=== PATIENT | female | born 1965 | race African-American/Black ===

== ENCOUNTER 2016-09-26 13:47 | Emergency (ER) | payer MEDICARE, MEDICAID ==
[2016-09-26 13:52] VITALS: BP 138/88
[2016-09-26] MEDS ORDERED: traMADol TAB* 50 MG PO ONE (14:35)
--- NOTE | 2016-09-26 15:12 | RAD ---
HISTORY: Neck pain COMPARISONS: None TECHNIQUE: Multiple contiguous axial CT scans were obtained of the cervical spine without intravenous contrast, with coronal and sagittal multiplanar reformations. FINDINGS: BRAIN: The visualized brain is unremarkable CENTRAL CANAL: Evaluation of the central canal is limited on CT technique; however, there is no obvious canalicular mass or epidural hemorrhage. ALIGNMENT: There is straightening of the cervical lordosis. VERTEBRAL BODIES: The odontoid process is intact. The atlantoaxial intervals are symmetric. The vertebral bodies are normal in attenuation, without fracture. There is multilevel anterolateral marginal osteophyte formation. JOINTS: There is mild uncovertebral and facet osteoarthritic change MUSCULATURE: Unremarkable INTERVERTEBRAL DISCS: There is diffuse loss of intervertebral disc height. AXIAL IMAGES: C2-C3: There is no osseous neural foraminal narrowing or central canal stenosis. C3-C4: There is no osseous neural foraminal narrowing or central canal stenosis. C4-C5: There is no osseous neural foraminal narrowing or central canal stenosis. C5-C6: There is no osseous neural foraminal narrowing or central canal stenosis. C6-C7: There is no osseous neural foraminal narrowing or central canal stenosis. C7-T1: There is no osseous neural foraminal narrowing or central canal stenosis. SOFT TISSUES: The visualized soft tissues of the neck are unremarkable. The prevertebral fat stripe is preserved. OTHER: None. IMPRESSION: 1. STRAIGHTENING OF THE CERVICAL LORDOSIS. 2. DEGENERATIVE DISC DISEASE AND OSTEOARTHRITIS. 3. NO SIGNIFICANT OSSEOUS NEURAL FORAMINAL NARROWING OR CENTRAL CANAL STENOSIS.
--- NOTE | 2016-10-06 03:21 | ED ---
Back Pain - HPI Summary HPI Summary: 51F presents with worsening of chronic neck pain. She denies any loss of bowel or bladder or saddle anaesthesia. She is requesting an MRI which explained that needs to set up through primary. she takes lyrica for pain. She used to be prescribed tramadol but is out. She states the pain radiates down her back. She denies any fever or IV drug use. she denies any injury. - History of Current Complaint Chief Complaint: EDBackInjuryPain Stated Complaint: NECK AND BACK PAIN Time Seen by Provider: 09/26/16 14:06 Pain Intensity: 10 - Allergies/Home Medications Allergies/Adverse Reactions: Allergies Allergy/AdvReac Type Severity Reaction Status Date / Time Vitamin E Allergy Severe Rash Verified 07/25/15 11:40 PMH/Surg Hx/FS Hx/Imm Hx Endocrine/Hematology History: Denies: Hx Diabetes Cardiovascular History: Reports: Hx Hypertension Denies: Hx Congestive Heart Failure, Hx Pacemaker/ICD Respiratory History: Reports: Other Respiratory Problems/Disorders - LLL lung mass, long-time smoker GI History: Reports: Hx Gastroesophageal Reflux Disease Musculoskeletal History: Reports: Hx Back Problems Sensory History: Reports: Hx Hearing Problem Denies: Hx Hearing Aid Neurological History: Reports: Other Neuro Impairments/Disorders - vertigo, PAIN CLINIC PATIENT Psychiatric History: Reports: Hx Anxiety, Hx Depression, Hx Inpatient Treatment , Hx Community Mental Health Tx Denies: Hx Eating Disorder, Hx Panic Disorder, Hx Schizophrenia - schizoaffective disorder, Hx of Violent Episodes Against Others Comment Only: Other Psychiatric Issues/Disorders - schizoaffective disorder - Cancer History Cancer Type, Location and Year: LLL lung mass 11/15 - Surgical History Surgery Procedure, Year, and Place: HYSTERECTOMY, APPENDECTOMY, CHOLECYSTECTOMY , EAR SURGERY-PT GETTING INFO,BUNIONECTOMY, X2, TUBAL LIGATION, LEFT WRIST CYST REMOVAL Infectious Disease History: No Infectious Disease History: Reports: Hx Shingles Denies: Traveled Outside the [place] in Last 30 Days - Family History Known Family History: Positive: Hypertension - Social History Alcohol Use: None Alcohol Amount: beer Substance Use Type: Reports: None Substance Use Comment - Amount & Last Used: Lyrica RX by Dr. Gilbert Smoking Status (MU): Light Every Day Tobacco Smoker Type: Cigarettes Amount Used/How Often: 5 cigarettes day Length of Time of Smoking/Using Tobacco: began at age 15 Have You Smoked in the Last Year: No Review of Systems Negative: Fever Negative: Chest Pain Negative: Shortness Of Breath Positive: Myalgia - neck pain All Other Systems Reviewed And Are Negative: Yes Physical Exam Triage Information Reviewed: Yes Vital Signs On Initial Exam: Initial Vitals Temp Pulse Resp BP Pulse Ox 98.1 F 78 14 138/88 100 09/26/16 13:49 09/26/16 13:49 09/26/16 13:49 09/26/16 13:49 09/26/16 13:49 Vital Signs Reviewed: Yes Appearance: Positive: Well-Appearing Skin: Positive: Warm, Dry Head/Face: Positive: Normal Head/Face Inspection Eyes: Positive: Normal, Conjunctiva Clear Respiratory/Lung Sounds: Positive: Clear to Auscultation, Breath Sounds Present Cardiovascular: Positive: Normal, RRR Musculoskeletal: Positive: Strength/ROM Intact - shoulder, Limited @ - neck due to pain, Other - good pulses, capillary refill<2 secs, tender across neck Neurological: Positive: Reflexes Intact - biceps Diagnostics - Vital Signs Vital Signs Temp Pulse Resp BP Pulse Ox 09/26/16 13:49 98.1 F 78 14 138/88 100 - Laboratory Lab Statement: Any lab studies that have been ordered have been reviewed, and results considered in the medical decision making process. Back Pain Course/Dx - Course Course Of Treatment: 51F presents with worsening of chronic neck pain. She denies any loss of bowel or bladder or saddle anaesthesia. She is requesting an MRI which explained that needs to set up through primary. she takes lyrica for pain. She used to be prescribed tramadol but is out. She states the pain radiates down her back. She denies any fever or IV drug use. she denies any injury. on exam tender cervical back, neurovscular intact. did CT and told to follow up with primary. patient left without discharge paperwork. patient understands and agrees with plan. - Diagnoses Differential Diagnosis/HQI/PQRI: Positive: Herniated Disc, Strain, Sprain Provider Diagnoses: Neck pain Discharge - Discharge Plan Condition: Stable Disposition: HOME Referrals: Tonny Gilbert MD [Primary Care Provider] -
== END 2016-09-26 16:26 ==
LOC: ED 13:47
DX: M54.2 Cervicalgia (principal); F17.210 Nicotine dependence, cigarettes, uncomplicated; M54.9 Dorsalgia, unspecified; M51.34 Other intervertebral disc degeneration, thoracic region; Z86.79 Personal history of other diseases of the circulatory system
CPT/HCPCS: 72125; 99282; A9270-GY

== ENCOUNTER 2016-11-18 12:08 | Emergency (ER) | payer MEDICARE, MEDICAID ==
--- NOTE | 2016-11-18 14:58 | RAD ---
Indication: Bilateral leg pain CT of the lumbar spine was obtained in the axial plane. Sagittal and coronal reconstructed images were obtained. The sacrum where visualized shows no fracture. Sacroiliac joints are unremarkable. At L5-S1 there is degenerative disc disease noted. Broad-based protrusion is noted. No central or foraminal stenosis is noted. At L4-L5 there is degenerative disc disease noted. Broad-based disc protrusion flattens the thecal sac. There may be mild central stenosis present. There may be posterior lateral disc component at L4-L5 resulting in mild right foraminal stenosis. At L3-L4 there is no focal protrusion. No central or foraminal stenosis is noted. At L2-L3 and L1-L2 the disc space appears normal. IMPRESSION: No FRACTURE OF THE LUMBAR SPINE IS NOTED. DEGENERATIVE DISC DISEASE IS NOTED AT L5-S1 WITH BROAD-BASED PROTRUSION. AT L4-L5 BROAD-BASED PROTRUSION ASYMMETRIC TOWARDS THE RIGHT IS NOTED FLATTENING THE THECAL SAC AND MAY NARROW THE RIGHT INTERVERTEBRAL FORAMEN. AT L3-L4, L2-L3 AND L1-L2 NO FOCAL PROTRUSION IS NOTED.
[2016-11-18] MEDS ORDERED: Dexamethasone IV* 4 MG/ML 5 ML VIAL (20 MG) IVPB ONE (16:50)
[2016-11-18] MEDS ORDERED: Ketorolac INJ* 30 MG/ML 1 ML VIAL IV PUSH ONE (16:50)
[2016-11-18] MEDS ORDERED: Lidocaine PATCH 5%* 1 PATCH TRANSDERM ONE (16:51)
--- NOTE | 2016-11-18 18:38 | ED ---
Back Pain - HPI Summary HPI Summary: Pt here w/ acute on chronic LBP w/ LE pain w/ walking. She has been dealing with her back pain which she also has in her cervical spine and thoracic spine - has been seen by neurosurg for these and no surgery advised at this time per pt. She is concerned about legs as she's having trouble walking. Denies pain while sitting, lying, sleeping -just w/ standing/walking. Has not tried anything for pain as she's not sure what to take. No change in bowel/bladder habits and denies numbness, tingling in LE's. Does report feeling like her legs are unstable today w/ trying to walk. - History of Current Complaint Chief Complaint: EDExtremityLower Stated Complaint: LEG PAIN Time Seen by Provider: 11/18/16 13:13 Hx Obtained From: Patient Pain Intensity: 10 - Allergies/Home Medications Allergies/Adverse Reactions: Allergies Allergy/AdvReac Type Severity Reaction Status Date / Time Vitamin E Allergy Severe Rash Verified 07/25/15 11:40 PMH/Surg Hx/FS Hx/Imm Hx Previously Healthy: Yes Endocrine/Hematology History: Denies: Hx Anticoagulant Therapy, Hx Blood Disorders, Hx Diabetes, Autoimmune Disease Cardiovascular History: Reports: Hx Hypertension Denies: Hx Congestive Heart Failure, Hx Pacemaker/ICD Respiratory History: Reports: Other Respiratory Problems/Disorders - LLL lung mass, long-time smoker GI History: Reports: Hx Gastroesophageal Reflux Disease Musculoskeletal History: Reports: Hx Back Problems Sensory History: Reports: Hx Hearing Problem Denies: Hx Hearing Aid Neurological History: Reports: Other Neuro Impairments/Disorders - vertigo, PAIN CLINIC PATIENT Psychiatric History: Reports: Hx Anxiety, Hx Depression, Hx Inpatient Treatment , Hx Community Mental Health Tx Denies: Hx Eating Disorder, Hx Panic Disorder, Hx Schizophrenia - schizoaffective disorder, Hx of Violent Episodes Against Others Comment Only: Other Psychiatric Issues/Disorders - schizoaffective disorder - Cancer History Cancer Type, Location and Year: LLL lung mass 11/15 - Surgical History Surgery Procedure, Year, and Place: HYSTERECTOMY, APPENDECTOMY, CHOLECYSTECTOMY , EAR SURGERY-PT GETTING INFO,BUNIONECTOMY, X2, TUBAL LIGATION, LEFT WRIST CYST REMOVAL Infectious Disease History: Reports: Hx Shingles Denies: Traveled Outside the [place] in Last 30 Days - Family History Known Family History: Positive: Hypertension - Social History Alcohol Use: None Alcohol Amount: beer Hx Substance Use: No Substance Use Type: Reports: None Substance Use Comment - Amount & Last Used: Lyrica RX by Dr. Vladimir Zamora Tobacco Use: Yes Smoking Status (MU): Current Every Day Smoker Type: Cigarettes Amount Used/How Often: 5 cigarettes day Length of Time of Smoking/Using Tobacco: began at age 15 Have You Smoked in the Last Year: No Review of Systems Constitutional: Negative Negative: Fever, Chills Cardiovascular: Negative Negative: Chest Pain Respiratory: Negative Negative: Shortness Of Breath Gastrointestinal: Negative Negative: Abdominal Pain, Vomiting, Diarrhea, Nausea Positive: no symptoms reported. Negative: incontinence Musculoskeletal: Other - see HPI Neurological: Other - see HPI Psychological: Normal - concerned about issues today but calm and cooperative All Other Systems Reviewed And Are Negative: Yes Physical Exam Triage Information Reviewed: Yes Vital Signs On Initial Exam: Initial Vitals Temp Pulse Resp BP Pulse Ox 98.2 F 68 20 134/60 98 11/18/16 12:44 11/18/16 12:44 11/18/16 12:44 11/18/16 12:44 11/18/16 12:44 Vital Signs Reviewed: Yes Appearance: Positive: No Pain Distress - pt sleeping in recliner chair upon entrance to room - woke easily, Obese Skin: Positive: Warm, Dry ENT: Positive: Hearing grossly normal, Pharynx normal - mucosa moist Respiratory/Lung Sounds: Positive: Breath Sounds Present Cardiovascular: Positive: Pulses are Symmetrical in both Upper and Lower Extremities Abdomen Description: Positive: Nontender, Soft Musculoskeletal: Positive: Strength/ROM Intact - LE's w/ 5/5 strength, equal B/L ; sensation intact and equal B/L, Pain @ - lumbar spinous pp and paraspinal mm are TTP Neurological: Positive: Normal, Sensory/Motor Intact, Alert, Oriented to Person Place, Time, CN Intact II-III Psychiatric: Positive: Normal Diagnostics - Vital Signs Vital Signs Temp Pulse Resp BP Pulse Ox 11/18/16 17:59 58 17 113/65 100 11/18/16 12:44 98.2 F 68 20 134/60 98 - Laboratory Lab Statement: Any lab studies that have been ordered have been reviewed, and results considered in the medical decision making process. Back Pain Course/Dx - Diagnoses Provider Diagnoses: DDD (degenerative disc disease), lumbosacral, Lumbar disc herniation with radiculopathy Discharge - Discharge Plan Condition: Stable Disposition: HOME Prescriptions: Lidocaine PATCH 5%* [Lidoderm 5% Patch*] 1 patch TRANSDERM DAILY #7 patch predniSONE TAB* [Deltasone TAB*] 20 mg PO Q8HR #12 tab Patient Education Materials: Degenerative Disc Disease (ED), Lumbar Disc Herniation (ED) Referrals: Rick Shepard MD [Medical Doctor] - Tonny Gilbert MD [Primary Care Provider] - Additional Instructions: Complete steroids and apply pain patch for pain relief You may continue to take your home pain medications as well Use walker for assistance with ambulation Follow-up with PCP for MRI. You may be a candidate for neurosurgical consult - contact included if necessary *If you develop incontinence of bowels/bladder, leg weakness or numbness, return to ED
[2016-11-18] MEDS ORDERED: Morphine INJ* 4 MG/ML 1 ML CARPUJECT IV ONE (19:58)
[2016-11-18] MEDS ORDERED: Lidocaine Patch REMOVE* 1 NOTE MISC SCH (21:00)
[2016-11-18] MEDS ORDERED: HYDROcodone/ACETAMIN 5-325 MG* 1 TAB PO ONE (21:25)
[2016-11-18 21:52] VITALS: BP 131/72
== END 2016-11-18 21:49 | disposition home or self-care (01) ==
LOC: ED 12:08
DX: M51.37 Other intervertebral disc degeneration, lumbosacral region (principal); M51.27 Other intervertebral disc displacement, lumbosacral region; M54.16 Radiculopathy, lumbar region; F17.210 Nicotine dependence, cigarettes, uncomplicated; I10 Essential (primary) hypertension; R91.8 Other nonspecific abnormal finding of lung field
CPT/HCPCS: 72131; 96360; 96374; 96375; 99282; A9270-GY; J1100; J1885; J2270

== ENCOUNTER 2017-01-30 06:03 | Observation (INO) | payer MEDICARE, MEDICAID ==
[~2017-01-30 06:03] MED LIST: Buffered Lidocaine 0.9% SYRIN* 5 ML/SYR SYRINGE INTRADERM ONE; Famotidine IV* 10 MG/ML 2 ML (20 mg) IV SLOW PU ONE
[2017-01-30] MEDS ORDERED: Famotidine IV* 10 MG/ML 2 ML (20 mg) ONE (06:10)
[2017-01-30] MEDS ORDERED: ceFAZolin 2 GM PREMIX (*) 2 GM/50 ML BAG IVPB ONE (06:10)
[2017-01-30] MEDS ORDERED: Buffered Lidocaine 0.9% SYRIN* 5 ML/SYR SYRINGE ONE (06:10)
[2017-01-30] MEDS ORDERED: Thrombin 5,000 UNITS* 1 APPLIC KIT - topical use - TOPICAL ONE (07:13)
[2017-01-30] MEDS ORDERED: Lidocaine 1% MPF wEPI 200,000* 30 ML SDV ONE (07:13)
[2017-01-30] MEDS ORDERED: ceFAZolin 1 GM ADVAN(*) 1 GM ADDV.VIAL IVPB ONE (07:14)
[2017-01-30] MEDS ORDERED: fentaNYL* 50 MCG/ML 2 ML VIAL (100 MCG VIAL) ONE ×3 (07:38→10:55)
[2017-01-30] MEDS ORDERED: Ondansetron INJ* 2 MG/ML VIAL ONE (07:39)
[2017-01-30] MEDS ORDERED: Dexamethasone IV* 4 MG/ML 1 ML (4 MG) ONE (07:39)
[2017-01-30] MEDS ORDERED: DiMENhydriNATE IV* 50 MG/ML VIAL ONE (07:39)
[2017-01-30] MEDS ORDERED: Propofol* 10 MG/ML 20 ML BTL IV PUSH ONE (07:39)
[2017-01-30] MEDS ORDERED: Midazolam* 1 MG/ML 2 ML VIAL (2 MG) ONE (07:39)
[2017-01-30] MEDS ORDERED: Lidocaine 2% PF * 5 ML VIAL ONE (07:39)
[2017-01-30] MEDS ORDERED: Rocuronium* 10 MG/ML VIAL ONE (07:39)
[2017-01-30] MEDS ORDERED: Phenylephrine IV* 40 MCG/ML 10 ML SYRINGE ONE (08:26)
[2017-01-30] MEDS ORDERED: Acetaminophen TAB* 325 MG PO PRN ×2 (09:01→11:13)
[2017-01-30] MEDS ORDERED: oxyCODONE TAB* 5 MG TAB PO PRN (09:01)
[2017-01-30] MEDS ORDERED: DiMENhydriNATE IV* 50 MG/ML VIAL IV PUSH PRN (09:01)
[2017-01-30] MEDS ORDERED: Labetalol IV* 5 MG/ML 20 ML VIAL ONE (11:13)
[2017-01-30] MEDS ORDERED: Promethazine TAB* 25 MG PO PRN (11:23)
[2017-01-30] MEDS ORDERED: Omeprazole CAP* 20 MG PO PRN (11:23)
[2017-01-30] MEDS ORDERED: Albuterol HFA INHALER* 8 gm MDI INH PRN (11:23)
[2017-01-30] MEDS ORDERED: HYDROcodone/ACETAMIN 5-325 MG* 1 TAB PO PRN ×2 (11:32→12:20)
[2017-01-30] MEDS ORDERED: Mouth Piece, Nicotine* 1 EACH CARTRIDGE INH PRN (11:33)
[2017-01-30] MEDS ORDERED: Nicotine Inhaler* 10 MG AMP INH PRN (11:33)
[2017-01-30] MEDS ORDERED: Fluticasone NASAL SPRAY 50MCG* 16 gm SPRAY BTL BOTH NARES PRN (11:46)
[2017-01-30] MEDS ORDERED: HYDROmorphone INJ* 1 MG/ML CARPUJECT SYRINGE ONE ×2 (11:47→12:30)
[2017-01-30] MEDS: HYDROmorphone INJ* 1 MG/ML CARPUJECT SYRINGE IV PRN ×7 (11:48→13:21)
--- NOTE | 2017-01-30 12:23 | RAD ---
INDICATION: Anterior cervical discectomy and fusion C5-C6. COMPARISON: Comparison is made with a prior x-ray study of the cervical spine from December 30, 2016. TECHNIQUE: 24.6 seconds of intermittent fluoroscopic guidance were provided and 8 spot films of the elbows spine were obtained in the operating room. FINDINGS: The films demonstrate an anterior cervical spinal fusion at the C5-C6 level. There is placement of a metallic plate anterior to those vertebral bodies and 2 surgical screws at each level. IMPRESSION: INTRAOPERATIVE CONTROL FILMS. CPT II Codes: 6045F
[2017-01-30] MEDS ORDERED: oxyCODONE TAB* 5 MG TAB ONE (12:30)
[2017-01-30] MEDS: Pregabalin CAP(*) 50 MG PO SCH ×2 (14:44→20:47)
[2017-01-30] MEDS: Nicotine PATCH 21 MG/24 HR* PATCH TRANSDERM SCH (14:44)
[2017-01-30] MEDS ORDERED: oxyCODONE/Acetamin 5/325 MG* TAB PO PRN (18:25)
[2017-01-30] MEDS ORDERED: oxyCODONE/Acetamin 5/325 MG* TAB ONE (18:35)
--- NOTE | 2017-01-30 19:46 | CONS ---
CC: Dr. Gilbert; Dr. Landin * CONSULTATION REPORT: DATE OF CONSULT: 01/30/17 PRIMARY CARE PROVIDER: Dr. Gilbert. ATTENDING PHYSICIAN WHILE IN THE HOSPITAL: Otto Matthews MD (report dictated by Yossi Horton NP). REQUESTING PHYSICIAN FOR CONSULT: Dr. Landin. REASON FOR MEDICAL CONSULTATION: Evaluation and medical management of comorbid medical conditions. HISTORY OF PRESENT ILLNESS: I refer you to Dr. Landin' H and P for further details. In short, Mrs. Bates is a 51-year-old female patient who has a history of schizoaffective disorder, obesity and hypertension. The patient has been having complaints of back pain radiating into both lower extremities. She also was having numbness to her upper extremities that had resolved. She had an MRI of the cervical spine, which was found to have some disease at C5 and C6. The patient was having cervical myelopathy. Ultimately, it was felt that she would require an ACDF at C5 and C6, which she underwent today, but because of her medical complexity, we were asked to evaluate and consult. She was evaluated in the PACU. She says she is having a pain right at her throat. She says that she hurts to swallow. She denies having any chest pain or shortness of breath. She states that she does feel drowsy. There is no nausea. She says that she is not vomiting. Her biggest complaint is pain right near the neck. She denied having any numbness or tingling to the arms and she is moving her extremities at this point and moving her lower extremities. She again because of her history of degenerative disk disease, history of hypertension along with history of schizoaffective disorder, anxiety, chronic back pain, borderline personality disorder, GERD, we were asked to evaluate in consult. PAST MEDICAL HISTORY: Significant for: 1. Anxiety. 2. Chronic back pain. 3. Degenerative disk disease. 4. Bipolar affective disorder. 5. Borderline personality disorder. 6. Chronic nausea. 7. GERD. 8. Schizoaffective disorder. 9. Hypertension. 10. Vertigo. PAST SURGICAL HISTORY: 1. She has had hysterectomy. 2. x2. 3. Tubal ligation. 4. Appendectomy. 5. Cholecystectomy. 6. Wrist surgery. 7. Bunionectomy. FAMILY HISTORY: Her brother has a history of schizophrenia. Mother does have a history of hypertension. Father is , history was unknown. SOCIAL HISTORY: She does not smoke now. She used to smoke. Does not drink alcohol. Surrogate decision maker is her mother. ALLERGIES TO MEDICATIONS: Include VITAMIN E. MEDICATIONS: Home meds again that we have 3 conflicting lists, but according to the pharmacy: 1. Tramadol 50 mg p.o. q.i.d. 2. Geodon 160 mg at bedtime. 3. Phenergan 25 mg p.o. every 6 hours as needed. 4. Lyrica 150 mg p.o. t.i.d. 5. Toprol-XL 50 mg p.o. b.i.d. 6. Meclizine 25 mg every 8 hours as needed. 7. Gabapentin 300 mg at bedtime. 8. Flonase 2 sprays both nares daily. 9. Nexium 40 mg daily as needed. 10. Diclofenac 1 tablet p.o. daily. 11. Amlodipine/benazepril 1 capsule p.o. b.i.d. 12. Elavil 25 mg at bedtime. 13. Xanax 2 mg at bedtime. 14. Ventolin 2 puffs inhaled every 4 hours as needed. REVIEW OF SYSTEMS: There is no documented fever. She denied having any significant weight change. There was no double vision. No ear discharge. Denied having any rhinorrhea. No sore throat. No thyroid enlargement. Denies any chest pain. No orthopnea. No nocturnal dyspnea. There is no abdominal pain. There is no nausea, no vomiting, no dysuria, no frequency. There was no seizure, no loss of consciousness, no pruritus, and no skin ulcerations. Review of 14 systems was completed, all others negative. PHYSICAL EXAM: Vital Signs: Blood pressure 129/75, pulse 88, respirations 18, O2 sat 99%, temperature 97.2. General: At this time, Mrs. Bates is a 51-year -old female patient. She is sitting in the PACU bed. She does again appear to be on fair amount of pain, but she does awake and she is alert. She is oriented x3. HEENT: Head: Atraumatic. Eyes: EOMs intact. Sclerae are anicteric and not pale. Neck: Supple. Throat: Oral mucosa appears to be moist. No oropharyngeal erythema. Heart: Sounds S1, S2. Regular rate and rhythm. No murmurs, rubs, or gallops. Lungs: Clear to auscultation bilaterally. No wheezes, rales, or rhonchi. Abdomen: Soft, flat, nontender. Bowel sounds were hypoactive. Extremities: Pulses were 2+ throughout. She can move the upper extremities. She does have 5/5 strength. Motor extremity, she has 5/5 strength too. Neurologically, she is drowsy, but she is awake, she is alert, she is oriented x3. She has no gross focal deficits. Her skin is intact with the exception she has an incision to the anterior part of her neck with a ALEJANDRA drain, which appears to be clean, dry, and intact. DIAGNOSTIC STUDIES/LAB DATA: Preop, WBC of 4.3, RBC of 4.62, hemoglobin 11.9, hematocrit 37, platelet count 287. Sodium was 137, potassium 4.4, chloride of 106, bicarb 23, BUN 14, creatinine 1.28. She had a chest x-ray done in 2016 showed rotated exam, no definite infiltrates. She did have an EKG from 2016 showing a normal sinus rhythm, rate of 88, no ST elevations or T-wave inversions. Old medical records were reviewed. ASSESSMENT AND PLAN: Mrs. Bates is a 51-year-old female patient, coming to Dr. Landin' service today for complaints of cervical myopathy. This patient underwent an ACDF at C5-C6. We were asked to evaluate in consult. Recommendations at this point are: 1. Status post ACDF with Dr. Landin. Defer the management to him and his team. 2. Degenerative disk disease. Again, follow with the primary. We will continue on pain management. 3. Hypertension. I am going to continue just a beta-stephanie for now in the immediate postoperative setting. Once we are able, we will continue her other medications as prescribed. 4. History of borderline personality disorder. At this point, we will continue her current medical management to rule out any issues. We have consider consulting Psychiatry. 5. History of schizoaffective disorder. Continue her Geodon as prescribed the medications. Again, if there become any acute issues, I would recommend a Psych consult. 6. Bipolar affective disorder. Again, continue meds as prescribed. Again, if there are any issues, I would recommend Psych consult. 7. Anxiety. I would continue her Xanax and again to rule out any issues, get a Psych consult. 8. History of obstructive sleep apnea. She says she just supposed to wear her mask at night, so I am going to put her on 24-hour pulse oximetry monitoring. 9. History of gastroesophageal reflux disease. Again, she is on p.r.n. Nexium. We will continue this. 10. DVT prophylaxis. Defer to the primary team. 11. Vertigo. Not an active issue now. We will monitor. Should she have any issues, we can always give meclizine. 12. Code status. Full code. 13. Fluids, electrolytes, and nutrition. I would recommend a regular diet. TIME SPENT: On the consult was 60 minutes, greater than half of the time was spent [id number] with the patient, obtaining my history and physical, the other half of the time was spent going over the plan of care with the patient and implementing the plan of care. I did discuss plan of care with my attending, Dr. Matthews, who is in agreement. YOSSI HORTON, LAMAR [id number]/CPS #: [id number] YVONNE
[2017-01-30] MEDS: Metoprolol Tartrate TAB* 100 MG TAB PO SCH (20:48)
[2017-01-30] MEDS ORDERED: Amitriptyline TAB* 25 MG PO SCH (21:00)
[2017-01-30] MEDS ORDERED: Ziprasidone * 20 MG CAP (generic Geodon) PO SCH (21:00)
[2017-01-30] MEDS ORDERED: Gabapentin CAP(*) 300 MG PO SCH (21:00)
[2017-01-30] MEDS ORDERED: ALPRAZOLAM 1 MG PO SCH (21:00)
--- NOTE | 2017-01-31 00:28 | OP ---
DATE OF OPERATION: 01/30/17 - ROOM #352 DATE OF : 65 SURGEON: Yoshi Landin MD. CUTTING MACHINE OFFBEARER: ALMA Ferraro. ANESTHESIOLOGIST: Velma Puentes MD ANESTHESIA: General. PRE-OP DIAGNOSES: C5-C6 herniated nucleus pulposus, myelopathy. POST-OP DIAGNOSES: C5-C6 herniated nucleus pulposus, myelopathy. OPERATIVE PROCEDURE: The patient underwent an anterior cervical discectomy and fusion at C5-C6 with PEEK intervertebral cage and plate. ESTIMATED BLOOD LOSS: 50 cc. COMPLICATIONS: None. SUMMARY: The patient is a very pleasant 51-year-old female with complaints of neck pain and tingling in both the hands. She had history of previous fall several times and had MRI findings consistent with a large C5-C6 disk herniation with cord signal changes. The patient also had complaints of back pain and severe degenerative disk disease at her lower lumbar spine. She was offered the option of surgical intervention in the form of anterior cervical discectomy and fusion at C5-C6 level. After all expectations, limitations, and possible complications of the procedure had been explained in detail to the patient with complications to include, but not limited to bleeding, infection, risk of damage to adjacent structures, in other words, paralysis, , need for additional procedure, anesthesia risks, stroke, blindness, construct instability, hardware failure, pseudoarthrosis, adjacent level disease, vocal cord paralysis, recurrent laryngeal nerve injury, Abida syndrome, need for tracheostomy and/or gastrostomy, spinal fluid leak. The patient and her mother under-stood and were agreeable with the plan and informed consent was obtained. They also understood that her condition may not improve in fact may get worse after the surgery and that the scope of the surgery is to possibly stabilize her myelopathy. They also understand that her condition may require additional procedures in the future and that the operative plan may be modified with the intraoperative findings and conditions. DESCRIPTION OF PROCEDURE: The patient was brought to the operating room and was placed under general anesthesia. She was carefully positioned supine on flat Ilya table and all bony prominences were meticulously padded. The patient's skin was prepped and draped in the standard fashion and after appropriate surgical pause and patient identification, a right paramedian transverse incision was marked on the skin at the appropriate surgical level with assistance of intraoperative fluoroscopic imaging. The skin was infiltrated with local anesthetic and a #10 surgical blade was used to incise the skin. The incision was carried down through the platysma with a Bovie cautery and self-retaining retractors were introduced into the field. The platysma was then divided with Bovie and Metzenbaum scissors and after undermining the platysma, the plane between the medial border of sternocleidomastoid and the lateral border of the medial musculature was gently developed. The vertebral fascia was identified and it was gently and the anterior part of the spine was exposed. The intraoperative x-ray confirmed the proper surgical level and after placing of the self-retaining retractors and [place] pins, a standard diskectomy was performed at the C5-C6 level with use of pituitary rongeurs, Kerrison punches, curettes and high speed drill. A large disk fragment was identified at the anterior part of the thecal sac indenting into the thecal sac as expected from the preoperative imaging. Attention was paid to carefully dissect it from the dura. At the end of the diskectomy, the dura was pulsating nicely. Meticulous hemostasis was confirmed and after copious irrigation, a 7-mm height PEEK interbody cage filled with locally harvested bone graft during the diskectomy as well as DBM was inserted. A small Zevo Medtronic plate was placed and was secured with titanium screws. Intraoperative fluoroscopic images confirmed optimal placement of all hardware. Self-retaining retractors were removed and after confirmation of meticulous hemostasis and copious irrigation and meticulous inspection of the wound, the wound was closed by layers, after placing a #7 flat ALEJANDRA drain through a separate stab wound incision. The wound was closed by layers with 0 interrupted suture for the platysma, 2-0 interrupted Vicryl suture for the subcutaneous tissue and 4-0 Monocryl in a subcuticular layer for the skin. The skin was covered with Steri-Strips and sterile sponges. At the end of the procedure, all counts were reported to be correct. The patient remained hemodynamically stable throughout the case. She was extubated and was transferred to Recovery in excellent condition. I was present, scrubbed and available for the entirety of the case. [id number]/[facility] #: [id number] YVONNE
[2017-01-31] MEDS: oxyCODONE/Acetamin 5/325 MG* TAB PO PRN ×3 (02:53→12:06)
[2017-01-31 06:07] LABS: BUN/Creatinine Ratio 15.1 (8-20); Calcium 8.6 mg/dL (8.6-10.3); EGFR African American 46.4 (>60); EGFR Non-African American 36.1 (>60)
[2017-01-31 07:35] LABS: Hematocrit 31 % (35-47); Hemoglobin 9.9 g/dl (12.0-16.0); Mean Corpuscular HGB Conc 32 g/dl (31-36); Mean Corpuscular Hemoglobin 26 pg (27-31); Mean Corpuscular Volume 81 fL (80-97); Mean Platelet Volume 10 um3 (7.4-10.4); Red Blood Count 3.83 10^6/ul (4.0-5.4); Red Cell Distribution Width 16 % (10.5-15); White Blood Count 9.7 10^3/ul (3.5-10.8)
[2017-01-31] MEDS: Pregabalin CAP(*) 50 MG PO SCH ×2 (07:51→13:07)
[2017-01-31] MEDS: Metoprolol Tartrate TAB* 100 MG TAB PO SCH (07:51)
[2017-01-31] MEDS: Nicotine PATCH 21 MG/24 HR* PATCH TRANSDERM SCH (07:52)
[2017-01-31 08:03] LABS: Potassium 4.8 mmol/L (3.5-5.0)
--- NOTE | 2017-01-31 08:24 | RAD ---
INDICATION: Postoperative C-spine surgery COMPARISON: Cervical spine December 03, 2016 TECHNIQUE: Lateral imaging was performed FINDINGS: There is anterior cervical fusion at C5-C6. There is no evidence of hardware failure. Cervical alignment is normal. The remaining disc spaces are maintained. There is an anterior drainage catheter. IMPRESSION: ANTERIOR CERVICAL FUSION C5-C6
[2017-01-31 12:29] VITALS: BP 124/65
--- NOTE | 2017-01-31 13:06 | PN ---
Progress Note - Progress Note Date of Service: 01/31/17 SOAP: Subjective: []No events ON. Tolerates po well.Voids, Ambulates quite well. She reports that her upper extremity numbness has significantly improved. Objective: []VSS Wound soft clean dry. ALEJANDRA drain removed. AAOx3 GERALD, MIKE 5/5. Sensory grossly intact to light touch. Assessment: []51 yof cervical myelopathy, POD#1 ACDF C5-6 Plan: []Monitor VS Neurochecks. XR postop reveals excellent placement of hardware. MJ collar. DC home when cleared per PT and if ok with IM. Mack Landin MD
--- NOTE | 2017-01-31 15:01 | PN ---
Hospitalist Progress Note Patient discharged by neurosurgery service earlier today. Reviewed nursing notes, vitals and labs prior to discharge. Patient was not examined. No changes recommended to home medications. Follow up per neurosurgery team. Vital Signs: Temp Pulse Resp BP Pulse Ox 98.6 F 76 16 124/65 98 01/31/17 12:07 01/31/17 12:07 01/31/17 14:08 01/31/17 12:07 01/31/17 12:07
[2017-01-31] MEDS ORDERED: Nicotine Patch Removal NOTE PATCH OFF SCH (21:00)
--- NOTE | 2017-02-05 03:39 | DS ---
DISCHARGE SUMMARY: DATE OF ADMISSION: 01/30/17 DATE OF DISCHARGE: 01/31/17 PROCEDURE: The patient underwent an anterior cervical discectomy and fusion 01/30/17. DISPOSITION: Home. SUMMARY: The patient is a very pleasant 51-year-old female with complaints of neck pain radiating to both hands. She had findings consistent with cervical spondylotic myelopathy and history of previou s falls. ME revealed large C5-6 disk herniation with cord signal changes. She was offered the optio n of surgical intervention and underwent followup anterior cervical discectomy and fusion at [facility] on 01/30/17. The patient tolerated the procedure well. She was able to be extubated and was vogt sferred to a regular floor. She was placed on collar. On postoperative day #1, her ALEJANDRA was dis continued. She had postoperative x-rays, which revealed excellent placement of hardware. The patien t tolerated collar. She was able to void and ambulate without difficulty. Her condition impr erica and she was found to be able to be discharged home. DISPOSITION: Home. DISCHARGE MEDICATIONS: The patient was given prescription for Percocet. FOLLOWUP: The patient was scheduled for a follow up with me in the office for possible check in 7 to 10 days. [id number]/[facility] #: [id number]
== END 2017-01-31 14:30 | disposition home or self-care (01) ==
LOC: INTOOBSV 06:03 → AA 06:03 → SSU 13:57
PROVIDERS: ADMIT Neurological Surgery; ATTEND Neurological Surgery
PROC: 0RB30ZZ Excision of Cervical Vertebral Disc, Open Approach (ICD-10-PCS; principal; 2017-01-30 07:45)
DX: M47.26 Other spondylosis with radiculopathy, lumbar region (principal); I10 Essential (primary) hypertension; E66.9 Obesity, unspecified; F25.9 Schizoaffective disorder, unspecified; Z79.899 Other long term (current) drug therapy; Z87.891 Personal history of nicotine dependence; F60.3 Borderline personality disorder; M50.122 Cervical disc disorder at C5-C6 level with radiculopathy
CPT/HCPCS: 36415; 72020; 76001; 80048; 85025; A9270-GY; G0378; G8978-GP-CH; G8979-GP-CH; G8980-GP-CH; J0690; J1100; J1170; J1240; J2001; J2250; J2405; J2704; J3010